=== PATIENT | female | born 1945 | race Caucasian/White ===

== ENCOUNTER 2019-01-13 19:16 | Emergency (ER) | payer MEDICARE ==
[~2019-01-13] VITALS: Ht 165.1 cm; Wt 62.6 kg
[2019-01-13 19:24] VITALS: BP 141/75
--- NOTE | 2019-01-13 19:55 | NUR ---
CALLED OFFICE OF DR FRYE FOR CONSULT FOR THIS PATIENT.
[2019-01-13] MEDS ORDERED: LIDOCAINE 1%-EPI 1:100,000 50 ML VIAL IJ ONE (22:00)
[2019-01-13] MEDS ORDERED: ACETAMINOPHEN 325 MG TABLET ONE (22:37)
[2019-01-13] MEDS ORDERED: ACETAMINOPHEN 325 MG TABLET PO ONE (23:00)
== END 2019-01-13 23:08 | disposition home or self-care (01) ==
LOC: ER 19:21
DX: S01.112A Laceration without foreign body of left eyelid and periocular area, initial encounter (principal); S60.211A Contusion of right wrist, initial encounter; S09.8XXA Other specified injuries of head, initial encounter; Z85.6 Personal history of leukemia; W01.0XXA Fall on same level from slipping, tripping and stumbling without subsequent striking against object, initial encounter; Y93.89 Activity, other specified; Y92.89 Other specified places as the place of occurrence of the external cause; Y99.8 Other external cause status
CPT/HCPCS: 12013; 70450; 70486; 73110; 99284; A6402; J3490